=== PATIENT | female | born 1965 | race Caucasian/White ===

== ENCOUNTER 2022-03-30 15:22 | Emergency (ER) | payer OTHER, BC, SELFPAY ==
[2022-03-30 15:33] VITALS: BP 139/63; PULSE 67; RESP 18; TEMP 36.3; O2SAT 96; BMI 30.3
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
--- NOTE | 2022-03-30 16:44 | ED.NURSE ---
1600-TTA called d/t MD kami aware. 1625-Pt ambulates to BR well. 1629-Pt to imaging.
[2022-03-30] MEDS: IBUPROFEN 400 MG TABLET 800 MG PO (17:03)
[2022-03-30] MEDS: ACETAMINOPHEN 500 MG TABLET 1000 MG PO (17:03)
--- NOTE | 2022-03-30 17:54 | ED.NURSE ---
Last tdap: 05/21/2018. aware.
--- NOTE | 2022-03-30 18:14 | ED.NURSE ---
Non-adhesive bandage applied with bacitracin by EDT. Thumb splint in place.
[2022-03-30 18:35] VITALS: BP 139/63; PULSE 67; RESP 18; TEMP 36.3
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
== END 2022-03-30 18:35 | disposition home or self-care (01) ==
PROVIDERS: Emergency Provider Student in an Organized Health Care Education/Training Program; PCP Family Medicine
DX: S69.92XA Unspecified injury of left wrist, hand and finger(s), initial encounter (principal); S29.9XXA Unspecified injury of thorax, initial encounter; V43.52XA Car driver injured in collision with other type car in traffic accident, initial encounter
CPT/HCPCS: 71250; 73140; 99283; 99284; 99291; A9270

== ENCOUNTER 2023-02-28 15:15 | Outpatient (RCR) | payer BC, OTHER, SELFPAY | END 2023-06-28 23:59 | disposition home or self-care (01) | PROVIDERS: PCP Family Medicine; Visit Provider Family Medicine | DX: G56.22 Lesion of ulnar nerve, left upper limb (principal); S53.4 Sprain of elbow; V89.2XXD Person injured in unspecified motor-vehicle accident, traffic, subsequent encounter; M67.922 Unspecified disorder of synovium and tendon, left upper arm; G56.01 Carpal tunnel syndrome, right upper limb; Z51.89 Encounter for other specified aftercare | CPT/HCPCS: 97033; 97035; 97110; 97140; 97165; 97535; T1013; L3906; X5282 ==

== ENCOUNTER 2024-01-11 15:30 | Outpatient (RCR) | payer BC, SELFPAY | END 2024-04-15 11:47 | disposition home or self-care (01) | PROVIDERS: PCP Family Medicine; Visit Provider Family Medicine | DX: M25.552 Pain in left hip (principal); M25.562 Pain in left knee; M79.672 Pain in left foot; M62.81 Muscle weakness (generalized); Z51.89 Encounter for other specified aftercare | CPT/HCPCS: 97110; 97161; T1013 ==